=== PATIENT | male | born 1940 | race Caucasian/White ===

== ENCOUNTER 2018-09-26 05:24 | Inpatient (IN) | payer MEDICARE, OTHER ==
[2018-09-22 12:06] LABS: BASOPHILS % (AUTO) 0.6 % (0-1); EOSINOPHILS # (AUTO) 0.1 X10'3 (0-0.9); EOSINOPHILS % (AUTO) 3.3 % (0-6); LYMPHOCYTES % (AUTO) 31.4 % (21-51); MEAN CORPUSCULAR HEMOGLOBIN 33.4 PG (27.0-31.0); MEAN CORPUSCULAR VOLUME 95.4 FL (78-98); MEAN PLATELET VOLUME 7.8 FL (7.4-10.4); MONOCYTES # (AUTO) 0.3 X10'3 (0-0.9); MONOCYTES % (AUTO) 8.3 % (2-12); NEUTROPHILS # (AUTO) 1.8 X10'3 (1.8-7.7); NEUTROPHILS % (AUTO) 56.4 % (42-75); PRE OP HEMATOCRIT 32.7 % (42.0-52.0); PRE OP HEMOGLOBIN 11.4 g/dL (14.0-17.9); RED BLOOD COUNT 3.43 X10'6 (4.70-6.10); RED CELL DISTRIBUTION WIDTH 15.3 % (11.5-14.5)
[2018-09-22 12:16] LABS: PRE OP INR 1.1 INR; PRE OP PROTIME 11.5 SECONDS (9.0-12.0)
[2018-09-22 12:22] LABS: ALBUMIN 3.2 G/DL (3.4-5.0); ALBUMIN/GLOBULIN RATIO 0.8 (1.1-1.5); ALKALINE PHOSPHATASE 83 IU/L (46-116); BLOOD UREA NITROGEN 20 MG/DL (7-18); BUN/CREATININE RATIO 16.3 (5.4-32.0); CALCIUM 8.8 MG/DL (8.5-10.1); CHLORIDE 108 MMOL/L (99-107); CREATININE 1.23 MG/DL (0.60-1.10); PRE OP ALT 18 U/L (30-65); PRE OP ANION GAP 8 (8-16); PRE OP AST 11 U/L (10-37); PRE OP BILIRUB, TOTAL 0.5 MG/DL (0.0-1.0); PRE OP GLUCOSE 154 MG/DL (70-104); PRE OP POTASSIUM 3.9 MMOL/L (3.4-5.1); PRE OP SODIUM 141 MMOL/L (135-145); TOTAL CARBON DIOXIDE 25.2 MMOL/L (24-32); TOTAL PROTEIN 7.3 G/DL (6.4-8.2); eGFR 57 ML/MIN
[2018-09-22 12:35] LABS: PRE OP PLATELET COUNT 74 X10'3 (140-440)
[2018-09-22 12:45] LABS: HEMOGLOBIN A1C 6.3 % (4.5-6.2)
[2018-09-26] VITALS (26 sets, daily range): BP systolic 92–131; BP diastolic 44–80
[~2018-09-26] VITALS: Ht 190.5 cm; Wt 100.2 kg
[~2018-09-26 05:24] MED LIST: ASCO500C15 PO; CHOL10002 PO; CRAN500C3 PO; FINA5TAB11 PO; FLO0.4C PO; GABA-530 PO; GLIM2TAB3 PO; MAGN400C PO; MELO15TA13 PO; NEBI2.5T3 PO; OMEP20CA11 PO; VITA1TAB20 PO
[2018-09-26] MEDS ORDERED: famotidine 20mg tablet PO ONE (05:30)
[2018-09-26] MEDS ORDERED: albuterol 2.5 MG/3 ML nebule NEB ONE (05:30)
[2018-09-26] MEDS ORDERED: cefazolin/dext.iso 2gm/100 ML IV ONE (05:30)
[2018-09-26] MEDS ORDERED: LIDOcaine 1% (10mg/ml) 2ml vial ONE (05:50)
[2018-09-26] MEDS: ringers solution, lacted 1,000 ML IV SCH ×2 (06:19→20:33)
[2018-09-26] MEDS ORDERED: neomy sulf/polymyxin B sulf. GU irrigation 1ml amp IR ONE (06:34)
[2018-09-26] MEDS ORDERED: fentaNYL/PF 50MCG/1 ML 2ML syringe ONE (07:16)
[2018-09-26] MEDS ORDERED: morphine /PF 1mg/ml 10ml inj. ONE (07:16)
[2018-09-26] MEDS ORDERED: midazolam 2 mg/2 ml injection ONE (07:16)
[2018-09-26] MEDS ORDERED: LIDOcaine 2% (20mg/ml) 5ml vial ONE (07:21)
[2018-09-26] MEDS ORDERED: propofol inj 20 ML IV ONE (07:21)
[2018-09-26] MEDS ORDERED: rocuronium 10mg/ml inj IV ONE (07:22)
[2018-09-26] MEDS ORDERED: ringers solution, lacted 1,000 ML IV SCH (07:24)
[2018-09-26] MEDS ORDERED: ondansetron/PF 4mg/2ml inj IV PRN ×3 (07:25→11:05)
[2018-09-26] MEDS ORDERED: morphine 4 MG/ML inj SYRINge IV PRN ×2 (07:25)
[2018-09-26] MEDS ORDERED: fentaNYL/PF 50MCG/1 ML 2ML syringe IV PRN ×2 (07:25)
[2018-09-26] MEDS ORDERED: hydrALAZINE 20mg/ml inj. IV PRN (07:25)
[2018-09-26] MEDS ORDERED: labetalol 20mg/4ml (5mg/ml) syringe IV PRN (07:25)
[2018-09-26] MEDS ORDERED: sevoflurane 250ml liquid IH ONE (07:38)
[2018-09-26] MEDS ORDERED: gentamicin 40 MG/1 ML inj ONE (07:40)
[2018-09-26] MEDS ORDERED: dexamethasone sod phosphate 4mg/ml inj. ONE (08:29)
[2018-09-26] MEDS ORDERED: ondansetron/PF 4mg/2ml inj ONE (08:31)
[2018-09-26] MEDS ORDERED: albumin (Human) 5% 250ml 250 ML IV ONE ×7 (09:09→10:20)
[2018-09-26] MEDS ORDERED: ePHEDrine 50MG/ML INJ. ONE ×2 (09:12→10:22)
[2018-09-26 09:56] LABS: ISTAT CREATININE 1.2 mg/dL (0.8-1.3); ISTAT IONIZED CALCIUM 1.21 mmol/L (1.03-1.32); ISTAT K 4.1 mmol/L (3.5-5.1); POC BUN/CREATININE RATIO 19.2 (5.4-32.0)
[2018-09-26 10:07] LABS: ISTAT HGB 5.4 g/dl (14.0-18.0)
[2018-09-26] MEDS ORDERED: fluoroscein sod 10% (100mg/ml) 5ml vial ONE (10:22)
[2018-09-26] MEDS ORDERED: phenylephrine 10mg/ml inj. ONE (10:22)
--- NOTE | 2018-09-26 10:45 | NUR ---
Received from OR via , accompanied by Anesthesiologist DR ROGERS and report given by Anesthesiolgist. AWAKENS TO VOICE. VITALS STABLE. DRESSINGS DI. SMILEY PAIN. CBI WITH LIGHT SUZY URINE. YVETTE WITH MODERATE AMNT SEROSANG IN BULB.
[2018-09-26] MEDS ORDERED: CADD PCA waste documentation MC PRN (10:50)
[2018-09-26] MEDS ORDERED: naloxone 0.4 mg/ml inj IV PRN (10:50)
[2018-09-26] MEDS: HYDROmorphone/NS 1 mg/ml CADD 50 ML IV SCH ×7 (11:00→23:00)
[2018-09-26 11:05] LABS: ISTAT CREATININE 1.1 mg/dL (0.8-1.3); ISTAT HGB 7.1 g/dl (14.0-18.0); ISTAT IONIZED CALCIUM 1.2 mmol/L (1.03-1.32); ISTAT K 4.2 mmol/L (3.5-5.1)
[2018-09-26] MEDS ORDERED: diphenhydrAMINE 50 mg/ml inj IV PRN (11:05)
[2018-09-26] MEDS ORDERED: neostigmine methylsulfate 1 MG/ML 10ml vial ONE (11:10)
[2018-09-26] MEDS ORDERED: glycopyrrolate 0.2mg/ml inj ONE (11:10)
[2018-09-26] MEDS ORDERED: calcium chloride 100 MG/1 ML inj IV ONE (11:35)
--- NOTE | 2018-09-26 11:55 | NUR ---
Report called to receiving nurse. Transferred via BED Belongings . Special Issues communicated to receiving nurse. AWAKE AND ORIENTED. VITALS STABLE. DRESSINGS DI. SMILEY PAIN. SENSATION AT THE KNEES. [facility] AT [facility].
--- NOTE | 2018-09-26 12:05 | NUR ---
Patient came to 2013 with CBI infusing. Patient just waking up from surgery, vss though bp is low 90s/50s. Patient is alert and oriented x4.
[2018-09-26 13:20] LABS: BASOPHILS % (AUTO) 0.3 % (0-1); EOSINOPHILS % (AUTO) 1.4 % (0-6); HEMATOCRIT 24.5 % (42.0-52.0); HEMOGLOBIN 8.4 g/dl (14.0-17.9); LYMPHOCYTES # (AUTO) 0.2 X10'3 (1.1-4.8); LYMPHOCYTES % (AUTO) 9.3 % (21-51); MEAN CORPUSCULAR HEMOGLOBIN 32.7 PG (27.0-31.0); MEAN CORPUSCULAR HGB CONC 34.2 g/dL (33.0-36.5); MEAN CORPUSCULAR VOLUME 95.4 FL (78-98); MONOCYTES # (AUTO) 0.1 X10'3 (0-0.9); MONOCYTES % (AUTO) 3.4 % (2-12); NEUTROPHILS # (AUTO) 2.2 X10'3 (1.8-7.7); NEUTROPHILS % (AUTO) 85.6 % (42-75); PLATELET COUNT 52 X10'3 (140-440); RED BLOOD COUNT 2.57 X10'6 (4.70-6.10); RED CELL DISTRIBUTION WIDTH 16.1 % (11.5-14.5); WHITE BLOOD COUNT 2.5 X10'3 (4.5-11.0)
[2018-09-26 13:42] LABS: ANISOCYTOSIS 1+; PLATELET ESTIMATE DECREASED; POLYCHROMASIA 1+; TOTAL CELLS COUNTED 100
[2018-09-26] MEDS ORDERED: calcium chloride inj. 1,000 MG in normal saline 100ml IV soln 90 ML IV ONE (13:50)
[2018-09-26 14:25] LABS: BASOPHILS % (AUTO) 0.4 % (0-1); HEMATOCRIT 25.8 % (42.0-52.0); HEMOGLOBIN 8.8 g/dl (14.0-17.9); LYMPHOCYTES # (AUTO) 0.2 X10'3 (1.1-4.8); LYMPHOCYTES % (AUTO) 7.5 % (21-51); MEAN CORPUSCULAR HEMOGLOBIN 32.5 PG (27.0-31.0); MEAN CORPUSCULAR HGB CONC 34.2 g/dL (33.0-36.5); MEAN CORPUSCULAR VOLUME 95.1 FL (78-98); MONOCYTES # (AUTO) 0.1 X10'3 (0-0.9); NEUTROPHILS # (AUTO) 2.8 X10'3 (1.8-7.7); NEUTROPHILS % (AUTO) 88.1 % (42-75); RED BLOOD COUNT 2.72 X10'6 (4.70-6.10); RED CELL DISTRIBUTION WIDTH 16.1 % (11.5-14.5); WHITE BLOOD COUNT 3.2 X10'3 (4.5-11.0)
[2018-09-26 14:31] LABS: PARTIAL THROMBOPLASTIN TIME 38 SECONDS (22-32)
[2018-09-26 14:32] LABS: D-DIMER 1.91 MG/L FEU (0-0.50)
[2018-09-26 14:44] LABS: PLATELET COUNT 51 X10'3 (140-440)
[2018-09-26 14:45] LABS: PLATELET COUNT 51 X10'3 (140-440)
[2018-09-26] MEDS ORDERED: MESSAGE TO PHARMACY PO ONE (15:00)
[2018-09-26] MEDS ORDERED: dextrose ORAL solution 15 GM/59 ML bottle PO PRN ×2 (15:00)
[2018-09-26] MEDS ORDERED: glucagon, human recombinant 1mg kit SUBCUT PRN (15:00)
[2018-09-26] MEDS ORDERED: dextrose 50%-water 50ml dispensing syringe IV PRN ×2 (15:00)
[2018-09-26 18:03] LABS: BASOPHILS % (AUTO) 0.2 % (0-1); EOSINOPHILS % (AUTO) 0.5 % (0-6); HEMATOCRIT 28.8 % (42.0-52.0); HEMOGLOBIN 9.8 g/dl (14.0-17.9); LYMPHOCYTES # (AUTO) 0.3 X10'3 (1.1-4.8); LYMPHOCYTES % (AUTO) 7.5 % (21-51); MEAN CORPUSCULAR HEMOGLOBIN 32.4 PG (27.0-31.0); MEAN CORPUSCULAR VOLUME 95.4 FL (78-98); MONOCYTES # (AUTO) 0.1 X10'3 (0-0.9); MONOCYTES % (AUTO) 3.8 % (2-12); NEUTROPHILS # (AUTO) 3.2 X10'3 (1.8-7.7); RED BLOOD COUNT 3.01 X10'6 (4.70-6.10); RED CELL DISTRIBUTION WIDTH 15.6 % (11.5-14.5); WHITE BLOOD COUNT 3.6 X10'3 (4.5-11.0)
--- NOTE | 2018-09-26 18:19 | NUR ---
Problems reprioritized. Patient report given, questions answered & plan of care reviewed with Latrice MANZANARES.
[2018-09-26 18:24] LABS: PLATELET COUNT 48 X10'3 (140-440)
[2018-09-26] MEDS: insulin Lispro (HumaLOG) vial - multi-dose SQ SCH (19:12)
[2018-09-26] MEDS: insulin glargine (Lantus) pen - multi-dose SQ SCH (19:16)
[2018-09-26] MEDS: gabapentin 100mg capsule PO SCH (20:15)
[2018-09-26] MEDS: metoprolol tartrate 12.5mg (1/2 tablet) PO SCH (20:15)
[2018-09-26 20:22] LABS: PLATELET COUNT 51 X10'3 (140-440)
[2018-09-26 20:32] LABS: PARTIAL THROMBOPLASTIN TIME 34 SECONDS (22-32)
[2018-09-26 22:28] LABS: HEMATOCRIT 28.4 % (42.0-52.0); HEMOGLOBIN 9.8 g/dl (14.0-17.9); MEAN CORPUSCULAR HEMOGLOBIN 32.8 PG (27.0-31.0); MEAN CORPUSCULAR HGB CONC 34.4 g/dL (33.0-36.5); MEAN CORPUSCULAR VOLUME 95.3 FL (78-98); MEAN PLATELET VOLUME 8.2 FL (7.4-10.4); PLATELET COUNT 52 X10'3 (140-440); RED BLOOD COUNT 2.98 X10'6 (4.70-6.10); RED CELL DISTRIBUTION WIDTH 15.7 % (11.5-14.5); WHITE BLOOD COUNT 3.9 X10'3 (4.5-11.0)
[2018-09-27] VITALS (28 sets, daily range): BP systolic 89–142; BP diastolic 37–72
[2018-09-27] MEDS: HYDROmorphone/NS 1 mg/ml CADD 50 ML IV SCH ×8 (01:00→23:00)
--- NOTE | 2018-09-27 06:27 | NUR ---
Problems reprioritized. Patient report given, questions answered & plan of care reviewed with Ynes MANZANARES.
[2018-09-27 06:44] LABS: ALBUMIN 3.3 G/DL (3.4-5.0); ANION GAP 12 (8-16); BLOOD UREA NITROGEN 30 MG/DL (7-18); BUN/CREATININE RATIO 20.5 (5.4-32.0); CALCIUM 8.4 MG/DL (8.5-10.1); CHLORIDE 107 MMOL/L (99-107); CREATININE 1.46 MG/DL (0.60-1.10); GLUCOSE 157 MG/DL (70-104); POTASSIUM 5.5 MMOL/L (3.5-5.1); SODIUM 141 MMOL/L (135-145); TOTAL CARBON DIOXIDE 21.9 MMOL/L (24-32); eGFR 47 ML/MIN
[2018-09-27 06:56] LABS: D-DIMER 1.13 MG/L FEU (0-0.50); PARTIAL THROMBOPLASTIN TIME 31 SECONDS (22-32)
[2018-09-27 07:14] LABS: BASOPHILS % (AUTO) 0.9 % (0-1); EOSINOPHILS % (AUTO) 0 % (0-6); HEMATOCRIT 27.3 % (42.0-52.0); HEMOGLOBIN 9.3 g/dl (14.0-17.9); LYMPHOCYTES # (AUTO) 0.3 X10'3 (1.1-4.8); LYMPHOCYTES % (AUTO) 6.5 % (21-51); MEAN CORPUSCULAR HEMOGLOBIN 32.4 PG (27.0-31.0); MEAN CORPUSCULAR VOLUME 95.3 FL (78-98); MONOCYTES # (AUTO) 0.3 X10'3 (0-0.9); MONOCYTES % (AUTO) 7.4 % (2-12); NEUTROPHILS # (AUTO) 3.5 X10'3 (1.8-7.7); NEUTROPHILS % (AUTO) 85.2 % (42-75); PLATELET COUNT 57 X10'3 (140-440); RED BLOOD COUNT 2.87 X10'6 (4.70-6.10); WHITE BLOOD COUNT 4.1 X10'3 (4.5-11.0)
[2018-09-27 07:36] LABS: PLATELET COUNT 55 X10'3 (140-440)
[2018-09-27] MEDS: gabapentin 100mg capsule PO SCH ×2 (07:53→20:12)
[2018-09-27] MEDS: pantoprazole 40mg Tablet.DR PO SCH (07:53)
[2018-09-27] MEDS: docusate sod 250mg capsule PO SCH (07:53)
[2018-09-27] MEDS: metoprolol tartrate 12.5mg (1/2 tablet) PO SCH ×2 (07:54→20:39)
[2018-09-27] MEDS: sodium chloride 0.45% 1,000 ML IV SCH ×3 (09:35→18:59)
[2018-09-27 13:49] LABS: HEMATOCRIT 26.2 % (42.0-52.0); HEMOGLOBIN 9.1 g/dl (14.0-17.9); MEAN CORPUSCULAR HEMOGLOBIN 33.3 PG (27.0-31.0); MEAN CORPUSCULAR HGB CONC 34.9 g/dL (33.0-36.5); MEAN CORPUSCULAR VOLUME 95.4 FL (78-98); MEAN PLATELET VOLUME 8.7 FL (7.4-10.4); RED BLOOD COUNT 2.74 X10'6 (4.70-6.10); RED CELL DISTRIBUTION WIDTH 16.2 % (11.5-14.5); WHITE BLOOD COUNT 5.2 X10'3 (4.5-11.0)
[2018-09-27 13:53] LABS: PLATELET COUNT 41 X10'3 (140-440)
[2018-09-27] MEDS: insulin Lispro (HumaLOG) vial - multi-dose SQ SCH (15:36)
--- NOTE | 2018-09-27 17:41 | NUR ---
PATIENT RECEIVING ANOTHER UNIT OF BLOOD PER DR KAUR PARAMETERS.
--- NOTE | 2018-09-27 18:15 | NUR ---
Patient in room CICU 2012. I have received report from Ynes MANZANARES and had the opportunity to ask questions and assume patient care. Pt received awake alert & oriented PRBC infusing at this time. Pt is on clear liquid diet tray now served. Abdominal dressing is clean & dry, YVETTE drain is sutured in & drainage is watery pink. CBI return is pale yellow.
[2018-09-27] MEDS ORDERED: ipratropium/albuterol 3ml nebule NEB PRN (19:45)
--- NOTE | 2018-09-27 20:00 | NUR ---
Up to BSC with assistance. SOB with increased activity. Unable to move bowels at this time. Bath rendered, linen & gown changed. CBI in progress return is blush colored. YVETTE drain with watery pink drainage. Pt utilizes CADD pump for pain.
[2018-09-27] MEDS: ipratropium/albuterol 3ml nebule NEB PRN (20:05)
[2018-09-27 20:26] LABS: HEMATOCRIT 29.2 % (42.0-52.0); HEMOGLOBIN 10.1 g/dl (14.0-17.9); MEAN CORPUSCULAR HEMOGLOBIN 33.1 PG (27.0-31.0); MEAN CORPUSCULAR HGB CONC 34.7 g/dL (33.0-36.5); MEAN CORPUSCULAR VOLUME 95.3 FL (78-98); MEAN PLATELET VOLUME 8.4 FL (7.4-10.4); PLATELET COUNT 56 X10'3 (140-440); RED BLOOD COUNT 3.06 X10'6 (4.70-6.10); RED CELL DISTRIBUTION WIDTH 15.5 % (11.5-14.5); WHITE BLOOD COUNT 5.8 X10'3 (4.5-11.0)
[2018-09-27] MEDS: insulin glargine (Lantus) pen - multi-dose SQ SCH (20:38)
[2018-09-28] VITALS (14 sets, daily range): BP systolic 114–157; BP diastolic 55–83
[2018-09-28] MEDS: HYDROmorphone/NS 1 mg/ml CADD 50 ML IV SCH ×12 (01:00→23:00)
--- NOTE | 2018-09-28 01:00 | NUR ---
Pt picking at IV site and all monitoring equipment. Confused wanting to go in the garage. Reoriented. Pt wants to get out of bed. Assisted up in recliner. IV site dressing changed to right AC #16G., excellent blood return. Tegaderm to site & wrapped with Coban to hide tubing. Three way matthew cath with CBI. Pt pulling at Matthew & blood is oozing from penis. Radha care rendered. No further bleeding a this time. Primary RN in room with patient or in direct view of pt .
[2018-09-28] MEDS ORDERED: LORazepam 2 mg/ml vial IV ONE (01:20)
--- NOTE | 2018-09-28 02:05 | NUR ---
Assisted back to bed at this time. Pt states he is smoking a cigarette and he dropped it. Pt is taking puffs from imaginary cigarette in his fingers. Reoriented. Safety precautions observed side rails up RN at bedside with pt. Saturating 97-100% on 3L oxygen via NC.
[2018-09-28] MEDS: nicotine 21mg patch - 24 hr TD SCH ×2 (02:12→08:00)
[2018-09-28] MEDS: ipratropium/albuterol 3ml nebule NEB PRN ×2 (02:33→19:12)
--- NOTE | 2018-09-28 02:34 | NUR ---
BS 48 Addendum: 09/28/18 at 0426 by Latrice Cornejo RN 1 amp 50% dextrose given
--- NOTE | 2018-09-28 02:54 | NUR ---
BS 89 post 50% dextrose. TELECOMMUNICATIONS CONSULTANT aware of episode of hypoglycemia. No new orders.
[2018-09-28] MEDS: sodium chloride 0.45% 1,000 ML IV SCH (03:02)
--- NOTE | 2018-09-28 04:05 | NUR ---
BS 69 1/2 amp 50% dextrose given.
--- NOTE | 2018-09-28 04:24 | NUR ---
BS 98
[2018-09-28 06:03] LABS: BASOPHILS % (AUTO) 0.3 % (0-1); EOSINOPHILS % (AUTO) 0.9 % (0-6); HEMATOCRIT 29.3 % (42.0-52.0); HEMOGLOBIN 10.3 g/dl (14.0-17.9); LYMPHOCYTES # (AUTO) 0.6 X10'3 (1.1-4.8); LYMPHOCYTES % (AUTO) 11.3 % (21-51); MEAN CORPUSCULAR HEMOGLOBIN 33.4 PG (27.0-31.0); MEAN CORPUSCULAR HGB CONC 35.2 g/dL (33.0-36.5); MEAN CORPUSCULAR VOLUME 94.7 FL (78-98); MEAN PLATELET VOLUME 8.6 FL (7.4-10.4); MONOCYTES # (AUTO) 0.4 X10'3 (0-0.9); MONOCYTES % (AUTO) 7.7 % (2-12); NEUTROPHILS # (AUTO) 4.2 X10'3 (1.8-7.7); NEUTROPHILS % (AUTO) 79.8 % (42-75); PLATELET COUNT 64 X10'3 (140-440); RED BLOOD COUNT 3.09 X10'6 (4.70-6.10); RED CELL DISTRIBUTION WIDTH 15.9 % (11.5-14.5); WHITE BLOOD COUNT 5.2 X10'3 (4.5-11.0)
--- NOTE | 2018-09-28 06:10 | NUR ---
SOUVENIR AND NOVELTY MAKER notified of BS 80 orders received. Pt given 2 apple juices.
[2018-09-28] MEDS: dextrose 5%-water 1,000 ML IV SCH ×2 (06:17→23:19)
[2018-09-28 06:19] LABS: ALBUMIN 3.4 G/DL (3.4-5.0); ANION GAP 9 (8-16); BLOOD UREA NITROGEN 31 MG/DL (7-18); CALCIUM 8.4 MG/DL (8.5-10.1); CHLORIDE 107 MMOL/L (99-107); CREATININE 1.29 MG/DL (0.60-1.10); GLUCOSE 66 MG/DL (70-104); POTASSIUM 4.7 MMOL/L (3.5-5.1); SODIUM 140 MMOL/L (135-145); TOTAL CARBON DIOXIDE 23.6 MMOL/L (24-32); eGFR 54 ML/MIN
--- NOTE | 2018-09-28 06:33 | NUR ---
Problems reprioritized. Patient report given, questions answered & plan of care reviewed with Sia MANZANARES.
--- NOTE | 2018-09-28 07:10 | NUR ---
Patient in room CICU 2013. I have received report from LEIGHTON Pollard and had the opportunity to ask questions and assume patient care.
[2018-09-28 08:29] LABS: HEMATOCRIT 28.8 % (42.0-52.0); HEMOGLOBIN 10.1 g/dl (14.0-17.9); MEAN CORPUSCULAR HEMOGLOBIN 32.9 PG (27.0-31.0); MEAN CORPUSCULAR HGB CONC 35.1 g/dL (33.0-36.5); MEAN CORPUSCULAR VOLUME 93.8 FL (78-98); PLATELET COUNT 64 X10'3 (140-440); RED BLOOD COUNT 3.07 X10'6 (4.70-6.10); RED CELL DISTRIBUTION WIDTH 16.1 % (11.5-14.5); WHITE BLOOD COUNT 5.9 X10'3 (4.5-11.0)
[2018-09-28 08:35] LABS: PLATELET COUNT 64 X10'3 (140-440)
[2018-09-28 08:55] LABS: D-DIMER 1.02 MG/L FEU (0-0.50); PARTIAL THROMBOPLASTIN TIME 31 SECONDS (22-32)
[2018-09-28] MEDS: docusate sod 250mg capsule PO SCH (09:39)
[2018-09-28] MEDS: pantoprazole 40mg Tablet.DR PO SCH (09:40)
[2018-09-28] MEDS: gabapentin 100mg capsule PO SCH ×2 (09:40→19:35)
[2018-09-28] MEDS: metoprolol tartrate 12.5mg (1/2 tablet) PO SCH ×2 (09:40→19:36)
--- NOTE | 2018-09-28 11:00 | NUR ---
Report received from Sia GARCIA RN.
--- NOTE | 2018-09-28 11:17 | NUR ---
Report called to Meenakshi RN
--- NOTE | 2018-09-28 11:30 | NUR ---
[facility].
--- NOTE | 2018-09-28 12:42 | NUR ---
Transferred patient to room 354 via wheelchair. Pt. had 1 bag of clothing and cell phone with cell phone slate cutter operator. Receiving nurse at bedside.
[2018-09-28 12:47] LABS: BASOPHILS % (AUTO) 0.3 % (0-1); EOSINOPHILS % (AUTO) 0.7 % (0-6); HEMATOCRIT 30.1 % (42.0-52.0); HEMOGLOBIN 10.6 g/dl (14.0-17.9); LYMPHOCYTES # (AUTO) 0.6 X10'3 (1.1-4.8); LYMPHOCYTES % (AUTO) 8.5 % (21-51); MEAN CORPUSCULAR HEMOGLOBIN 33.5 PG (27.0-31.0); MEAN CORPUSCULAR HGB CONC 35.4 g/dL (33.0-36.5); MEAN CORPUSCULAR VOLUME 94.7 FL (78-98); MEAN PLATELET VOLUME 8.4 FL (7.4-10.4); MONOCYTES # (AUTO) 0.8 X10'3 (0-0.9); MONOCYTES % (AUTO) 12.5 % (2-12); NEUTROPHILS # (AUTO) 5.1 X10'3 (1.8-7.7); PLATELET COUNT 67 X10'3 (140-440); RED BLOOD COUNT 3.18 X10'6 (4.70-6.10); RED CELL DISTRIBUTION WIDTH 15.9 % (11.5-14.5); WHITE BLOOD COUNT 6.5 X10'3 (4.5-11.0)
--- NOTE | 2018-09-28 18:25 | NUR ---
Problems reprioritized. Patient report given, questions answered & plan of care reviewed with LEIGHTON Rutherford.
[2018-09-28] MEDS: oxybutynin 5mg tablet PO PRN (19:35)
--- NOTE | 2018-09-28 21:09 | NUR ---
Patient in room [facility] 354. I have received report from LEIGHTON Arrieta and had the opportunity to ask questions and assume patient care. Addendum: 09/28/18 at 2110 by Sangeeta Jimenez RN Amended: Links added.
[2018-09-29] VITALS: BP 129/65
[2018-09-29] MEDS: HYDROmorphone/NS 1 mg/ml CADD 50 ML IV SCH ×4 (01:00→07:00)
[2018-09-29 06:10] LABS: BASOPHILS % (AUTO) 0.2 % (0-1); HEMATOCRIT 25.4 % (42.0-52.0); HEMOGLOBIN 8.9 g/dl (14.0-17.9); LYMPHOCYTES # (AUTO) 0.7 X10'3 (1.1-4.8); LYMPHOCYTES % (AUTO) 18.1 % (21-51); MEAN CORPUSCULAR HEMOGLOBIN 32.8 PG (27.0-31.0); MEAN CORPUSCULAR VOLUME 93.9 FL (78-98); MEAN PLATELET VOLUME 8.2 FL (7.4-10.4); MONOCYTES # (AUTO) 0.4 X10'3 (0-0.9); MONOCYTES % (AUTO) 11.1 % (2-12); NEUTROPHILS # (AUTO) 2.7 X10'3 (1.8-7.7); NEUTROPHILS % (AUTO) 69.6 % (42-75); PLATELET COUNT 60 X10'3 (140-440); RED CELL DISTRIBUTION WIDTH 15.6 % (11.5-14.5); WHITE BLOOD COUNT 3.9 X10'3 (4.5-11.0)
--- NOTE | 2018-09-29 06:10 | NUR ---
Patient in room [facility] 354. I have received report from LEIGHTON Rutherford and had the opportunity to ask questions and assume patient care.
[2018-09-29 06:11] LABS: ALBUMIN 2.7 G/DL (3.4-5.0); ANION GAP 10 (8-16); BLOOD UREA NITROGEN 22 MG/DL (7-18); CALCIUM 8.2 MG/DL (8.5-10.1); CHLORIDE 108 MMOL/L (99-107); GLUCOSE 127 MG/DL (70-104); PLATELET COUNT 59 X10'3 (140-440); POTASSIUM 3.8 MMOL/L (3.5-5.1); SODIUM 141 MMOL/L (135-145); TOTAL CARBON DIOXIDE 23.3 MMOL/L (24-32); eGFR 65 ML/MIN
--- NOTE | 2018-09-29 06:17 | NUR ---
Problems reprioritized. Patient report given, questions answered & plan of care reviewed with LEIGHTON Arrieta. Addendum: 09/29/18 at 0617 by Sangeeta Jimenez RN Amended: Links added.
[2018-09-29 06:22] LABS: D-DIMER 0.87 MG/L FEU (0-0.50); PARTIAL THROMBOPLASTIN TIME 36 SECONDS (22-32)
[2018-09-29 06:30] VITALS: BP 132/66
[2018-09-29] MEDS: nicotine 21mg patch - 24 hr TD SCH (08:55)
[2018-09-29] MEDS: gabapentin 100mg capsule PO SCH ×2 (08:55→19:06)
[2018-09-29] MEDS: metoprolol tartrate 12.5mg (1/2 tablet) PO SCH ×2 (08:55→19:06)
[2018-09-29] MEDS: docusate sod 250mg capsule PO SCH (08:55)
[2018-09-29] MEDS: pantoprazole 40mg Tablet.DR PO SCH (08:57)
[2018-09-29] MEDS ORDERED: CADD PCA waste documentation MC SCH (10:20)
[2018-09-29] MEDS: potassium cl 20mEq in 1/2 NS 1,000 ML IV SCH (10:35)
[2018-09-29 11:30] VITALS: BP 122/72
[2018-09-29 12:07] LABS: BASOPHILS % (AUTO) 0.5 % (0-1); EOSINOPHILS % (AUTO) 0.8 % (0-6); HEMATOCRIT 26.7 % (42.0-52.0); HEMOGLOBIN 9.2 g/dl (14.0-17.9); LYMPHOCYTES # (AUTO) 0.7 X10'3 (1.1-4.8); LYMPHOCYTES % (AUTO) 18.3 % (21-51); MEAN CORPUSCULAR HEMOGLOBIN 32.6 PG (27.0-31.0); MEAN CORPUSCULAR HGB CONC 34.5 g/dL (33.0-36.5); MEAN CORPUSCULAR VOLUME 94.5 FL (78-98); MONOCYTES # (AUTO) 0.4 X10'3 (0-0.9); MONOCYTES % (AUTO) 9.4 % (2-12); NEUTROPHILS # (AUTO) 2.9 X10'3 (1.8-7.7); PLATELET COUNT 62 X10'3 (140-440); RED BLOOD COUNT 2.82 X10'6 (4.70-6.10); RED CELL DISTRIBUTION WIDTH 16.2 % (11.5-14.5); WHITE BLOOD COUNT 4.1 X10'3 (4.5-11.0)
[2018-09-29] MEDS: HYDROcodone/acetaminophen 10/325mg tab PO PRN ×2 (12:38→19:06)
[2018-09-29 18:00] VITALS: BP 129/68
--- NOTE | 2018-09-29 18:20 | NUR ---
Problems reprioritized. Patient report given, questions answered & plan of care reviewed with LEIGHTON Rutherford.
[2018-09-29] MEDS: oxybutynin 5mg tablet PO PRN (19:06)
[2018-09-30] VITALS: BP 120/62
[2018-09-30] MEDS: potassium cl 20mEq in 1/2 NS 1,000 ML IV SCH ×2 (00:08→11:43)
[2018-09-30 05:48] LABS: BASOPHILS % (AUTO) 0.4 % (0-1); EOSINOPHILS # (AUTO) 0.1 X10'3 (0-0.9); EOSINOPHILS % (AUTO) 1.8 % (0-6); HEMATOCRIT 26.2 % (42.0-52.0); LYMPHOCYTES # (AUTO) 0.7 X10'3 (1.1-4.8); LYMPHOCYTES % (AUTO) 18.6 % (21-51); MEAN CORPUSCULAR HEMOGLOBIN 32.1 PG (27.0-31.0); MEAN CORPUSCULAR HGB CONC 34.4 g/dL (33.0-36.5); MEAN CORPUSCULAR VOLUME 93.4 FL (78-98); MEAN PLATELET VOLUME 8.3 FL (7.4-10.4); MONOCYTES # (AUTO) 0.3 X10'3 (0-0.9); MONOCYTES % (AUTO) 7.7 % (2-12); NEUTROPHILS # (AUTO) 2.7 X10'3 (1.8-7.7); NEUTROPHILS % (AUTO) 71.5 % (42-75); PLATELET COUNT 67 X10'3 (140-440); RED BLOOD COUNT 2.81 X10'6 (4.70-6.10); RED CELL DISTRIBUTION WIDTH 15.4 % (11.5-14.5); WHITE BLOOD COUNT 3.8 X10'3 (4.5-11.0)
[2018-09-30 05:58] LABS: ALBUMIN 2.6 G/DL (3.4-5.0); ANION GAP 7 (8-16); BLOOD UREA NITROGEN 20 MG/DL (7-18); BUN/CREATININE RATIO 16.5 (5.4-32.0); CALCIUM 8.2 MG/DL (8.5-10.1); CHLORIDE 109 MMOL/L (99-107); CREATININE 1.21 MG/DL (0.60-1.10); GLUCOSE 128 MG/DL (70-104); POTASSIUM 4.1 MMOL/L (3.5-5.1); SODIUM 141 MMOL/L (135-145); TOTAL CARBON DIOXIDE 24.7 MMOL/L (24-32); eGFR 58 ML/MIN
--- NOTE | 2018-09-30 06:19 | NUR ---
Problems reprioritized. Patient report given, questions answered & plan of care reviewed with LEIGHTON Lockhart. Addendum: 09/30/18 at 0620 by Sangeeta Jimenez RN Amended: Links added.
[2018-09-30 07:00] VITALS: BP 96/54
[2018-09-30] MEDS: metoprolol tartrate 12.5mg (1/2 tablet) PO SCH (08:00)
[2018-09-30] MEDS: gabapentin 100mg capsule PO SCH (08:40)
[2018-09-30] MEDS: HYDROcodone/acetaminophen 10/325mg tab PO PRN (08:40)
[2018-09-30] MEDS: nicotine 21mg patch - 24 hr TD SCH (08:40)
[2018-09-30] MEDS: pantoprazole 40mg Tablet.DR PO SCH (08:40)
[2018-09-30] MEDS: docusate sod 250mg capsule PO SCH (08:40)
[2018-09-30 11:00] VITALS: BP 129/65
[2018-09-30 12:25] LABS: BASOPHILS % (AUTO) 0.5 % (0-1); EOSINOPHILS # (AUTO) 0.1 X10'3 (0-0.9); EOSINOPHILS % (AUTO) 1.5 % (0-6); HEMOGLOBIN 9.1 g/dl (14.0-17.9); LYMPHOCYTES # (AUTO) 0.7 X10'3 (1.1-4.8); LYMPHOCYTES % (AUTO) 17.7 % (21-51); MEAN CORPUSCULAR HEMOGLOBIN 32.8 PG (27.0-31.0); MEAN CORPUSCULAR HGB CONC 34.9 g/dL (33.0-36.5); MEAN CORPUSCULAR VOLUME 94.1 FL (78-98); MEAN PLATELET VOLUME 8.3 FL (7.4-10.4); MONOCYTES # (AUTO) 0.3 X10'3 (0-0.9); MONOCYTES % (AUTO) 7.1 % (2-12); NEUTROPHILS # (AUTO) 2.7 X10'3 (1.8-7.7); NEUTROPHILS % (AUTO) 73.2 % (42-75); PLATELET COUNT 65 X10'3 (140-440); RED BLOOD COUNT 2.76 X10'6 (4.70-6.10); RED CELL DISTRIBUTION WIDTH 15.4 % (11.5-14.5); WHITE BLOOD COUNT 3.7 X10'3 (4.5-11.0)
[2018-09-30] MEDS ORDERED: HYDR-4383 PO (13:04)
[2018-09-30] MEDS ORDERED: DOCU-148 PO (13:04)
[2018-09-30] MEDS ORDERED: CEPH-571 PO (13:15)
--- NOTE | 2018-09-30 14:44 | NUR ---
PT O2 DROPPING TO 80-84% WHILE AMBULATING. O2 ON RA 92% WHILE AT REST. CALLED DR FULLER'S OFFICE, WAITING FOR CALL BACK FROM [facility].
--- NOTE | 2018-09-30 15:05 | NUR ---
PER DR FULLER OK TO SEND PT HOME, PT TO STOP BY HIS OFFICE TO PATHOLOGY TRANSCRIPTIONIST SCRIPT FOR NORCO
--- NOTE | 2018-09-30 15:30 | NUR ---
HIPOLITO YVETTE DRAIN PER MD ORDER
== END 2018-09-30 16:00 | disposition home or self-care (01) | DRG 718 ==
LOC: PAS IN 05:24 → EDSTATUS 07:30 → CICU 2S 12:06 → SUR 3N 09-28 11:30
PROVIDERS: ADMIT Urology; ATTEND Urology
PROC: 30233N1 Transfusion of Nonautologous Red Blood Cells into Peripheral Vein, Percutaneous Approach (ICD-10-PCS; 2018-09-26)
PROC: 30233K1 Transfusion of Nonautologous Frozen Plasma into Peripheral Vein, Percutaneous Approach (ICD-10-PCS; 2018-09-26)
PROC: 0VB00ZZ Excision of Prostate, Open Approach (ICD-10-PCS; principal; 2018-09-26 07:38)
PROC: 30233N1 Transfusion of Nonautologous Red Blood Cells into Peripheral Vein, Percutaneous Approach (ICD-10-PCS; 2018-09-27)
DX: D29.1 Benign neoplasm of prostate (principal); K21.9 Gastro-esophageal reflux disease without esophagitis; E11.22 Type 2 diabetes mellitus with diabetic chronic kidney disease; I12.9 Hypertensive chronic kidney disease with stage 1 through stage 4 chronic kidney disease, or unspecified chronic kidney disease; N18.9 Chronic kidney disease, unspecified; N32.0 Bladder-neck obstruction; F17.210 Nicotine dependence, cigarettes, uncomplicated; I25.10 Atherosclerotic heart disease of native coronary artery without angina pectoris; M19.90 Unspecified osteoarthritis, unspecified site; G47.30 Sleep apnea, unspecified; J44.9 Chronic obstructive pulmonary disease, unspecified; E11.40 Type 2 diabetes mellitus with diabetic neuropathy, unspecified; R33.9 Retention of urine, unspecified; Z79.84 Long term (current) use of oral hypoglycemic drugs; Z95.1 Presence of aortocoronary bypass graft; Z88.8 Allergy status to other drugs, medicaments and biological substances; Z92.3 Personal history of irradiation; Z92.21 Personal history of antineoplastic chemotherapy; Z78.1 Physical restraint status; Z79.899 Other long term (current) drug therapy; Y83.8 Other surgical procedures as the cause of abnormal reaction of the patient, or of later complication, without mention of misadventure at the time of the procedure; Y92.238 Other place in hospital as the place of occurrence of the external cause
CPT/HCPCS: 36415; 71046; 80047; 80048; 80053; 82948; 83036; 85025; 85027; 85379; 85384; 85610; 85730; 86885; 86900; 86901; 86920; 87081; 88307; 93005; 94640; 94760; 97110; 97116; 97161; 97530; A4338; A4346; A4355; A4357; A4618; A6402; A6449; A7000; C1758; C1769; G0378; J1100; J1170; J1580; J1815; J2001; J2060; J2250; J2270; J2370; J2405; J2704; J2710; J3010; J3480; J3490; J7030; J7070; J7120; P9016; P9045; P9059

== ENCOUNTER 2018-11-24 08:22 | Day surgery (SDC) | payer MEDICARE, OTHER ==
[2018-11-24] VITALS (13 sets, daily range): BP systolic 116–137; BP diastolic 57–82
[~2018-11-24] VITALS: Ht 190.5 cm; Wt 99.9 kg
[~2018-11-24 08:22] MED LIST changes: +CEPH-571 PO; +DOCU-148 PO; +HYDR-4383 PO
[2018-11-24] MEDS ORDERED: normal saline 1000ml 1,000 ML IV PRN (08:40)
[2018-11-24 09:31] LABS: BASOPHILS % (AUTO) 1.4 % (0-1); EOSINOPHILS % (AUTO) 3.4 % (0-6); HEMATOCRIT 28.1 % (42.0-52.0); HEMOGLOBIN 9.4 g/dl (14.0-17.9); LYMPHOCYTES # (AUTO) 0.5 X10'3 (1.1-4.8); LYMPHOCYTES % (AUTO) 41.5 % (21-51); MEAN CORPUSCULAR HEMOGLOBIN 32.1 PG (27.0-31.0); MEAN CORPUSCULAR HGB CONC 33.5 g/dL (33.0-36.5); MEAN PLATELET VOLUME 8.6 FL (7.4-10.4); MONOCYTES # (AUTO) 0.2 X10'3 (0-0.9); MONOCYTES % (AUTO) 16.9 % (2-12); NEUTROPHILS # (AUTO) 0.5 X10'3 (1.8-7.7); NEUTROPHILS % (AUTO) 36.8 % (42-75); PLATELET COUNT 63 X10'3 (140-440); RED BLOOD COUNT 2.93 X10'6 (4.70-6.10); RED CELL DISTRIBUTION WIDTH 17.8 % (11.5-14.5); WHITE BLOOD COUNT 1.2 X10'3 (4.5-11.0)
[2018-11-24 09:45] LABS: ALBUMIN 3.1 G/DL (3.4-5.0); ANION GAP 13 (8-16); BLOOD UREA NITROGEN 29 MG/DL (7-18); BUN/CREATININE RATIO 18.4 (5.4-32.0); CALCIUM 7.8 MG/DL (8.5-10.1); CHLORIDE 109 MMOL/L (99-107); CREATININE 1.58 MG/DL (0.60-1.10); GLUCOSE 95 MG/DL (70-104); POTASSIUM 4.1 MMOL/L (3.5-5.1); SODIUM 145 MMOL/L (135-145); TOTAL CARBON DIOXIDE 23.5 MMOL/L (24-32); eGFR 43 ML/MIN
[2018-11-24] MEDS ORDERED: HYDR-4383 PO (10:06)
[2018-11-24 10:31] LABS: TOTAL CELLS COUNTED 100
[2018-11-24 10:32] LABS: PLATELET ESTIMATE DECREASED; POLYCHROMASIA FEW
[2018-11-24 10:33] LABS: ANISOCYTOSIS 1+; HYPOCHROMASIA 1+
[2018-11-24] MEDS ORDERED: midazolam 2 mg/2 ml injection ONE (10:38)
[2018-11-24] MEDS ORDERED: fentaNYL/PF 50MCG/1 ML 2ML syringe ONE (10:39)
== END 2018-11-27 11:55 | disposition home or self-care (01) ==
LOC: SSTAY O 08:22
PROVIDERS: ATTEND Radiology Diagnostic Radiology
DX: R91.8 Other nonspecific abnormal finding of lung field (principal); C34.12 Malignant neoplasm of upper lobe, left bronchus or lung; E11.9 Type 2 diabetes mellitus without complications; K21.9 Gastro-esophageal reflux disease without esophagitis; D64.9 Anemia, unspecified; Z87.891 Personal history of nicotine dependence; Z79.899 Other long term (current) drug therapy; Z79.84 Long term (current) use of oral hypoglycemic drugs; Z88.8 Allergy status to other drugs, medicaments and biological substances; Z79.01 Long term (current) use of anticoagulants
CPT/HCPCS: 32405; 36415; 71045; 77012; 80048; 85025; 85610; 88184; 88185; 99152; 99153; J2250; J3010; J7030; 88173; 88305; 88341; 88342